=== PATIENT | female | born 1975 | race Caucasian/White ===

== ENCOUNTER → 2024-04-09 15:30 | Outpatient (REF) | payer BC, SELFPAY | LOC: HWWDC 15:30 | PROVIDERS: ATTENDING PHYSICIAN Obstetrics & Gynecology; FAMILY PHYSICIAN Nurse Practitioner Family | DX: Z12.31 Encounter for screening mammogram for malignant neoplasm of breast (principal) | CPT/HCPCS: 77063; 77067 ==